=== PATIENT | male | born 1955 | race Caucasian/White ===

== ENCOUNTER 2024-08-13 08:15 | Outpatient (RCR) | payer MEDICARE, SELFPAY ==
--- NOTE | 2024-08-12 09:13 | ONC.NURNOTE ---
Dx: Pancreatic cancer
--- NOTE | 2024-08-12 16:17 | ONC.NURNOTE ---
Diuretic with Blood Transfusion Pt coming here for 1st blood transfusion. He has a hx CHF, CKD, HTN in additional to cancer history: Mantle cell lymphoma (dx 01/2023), Pancreatic Ca (Dx 01/2024) and BRCA-1 +. Family hx includes mother with Pancreatic and Ovarian ca, sister w Ovarian ca, daughter passed at age 27 with Uterine Ca. Pt follows cardiology. He recently stopped several medications d/t adverse side effects, not knowing which one is the cause. Recommend with heart hx that pt has a diuretic with transfusion. Per Dr. Ferreira, ok for pt to resume his existing Bumetanide prescription. Pt believes he has some at home, but is considering picking up a refill from his pharmacy tonight. However he is very tired/symptomatic of anemia. Reviewed with Marcia with Dr. Ferreira's team that they will fax an order for diuretic to be given with transfusion if pt does not take his Bumetanide. Marcia, Operational Test [employer]ic [phone]
[2024-08-13] VITALS (7 sets, daily range): BP systolic 165–179; BP diastolic 83–101; PULSE 62–76; RESP 16–18; TEMP 36.2–36.4; O2SAT 96–99
[2024-08-13] MEDS: SODIUM CHLORIDE 0.9 % (FLUSH) 10 ML SYRINGE IVF (12:23)
[2024-08-13] MEDS: HEPARIN 500 UNIT/5 ML SYRINGE IVF (12:23)
== END 2025-02-08 23:59 | disposition home or self-care (01) ==
LOC: CCIC 08:15
PROVIDERS: Visit Provider Clinical Nurse Specialist
DX: C25.9 Malignant neoplasm of pancreas, unspecified (principal); D64.9 Anemia, unspecified
CPT/HCPCS: 36415; 36430; 36591; 86850; 86900; 86901; 86922; J1642; P9016